=== PATIENT | male | born 1990 | race Caucasian/White ===

== ENCOUNTER 2018-12-27 02:15 | Emergency (ER) | payer OTHER ==
[~2018-12-27] VITALS: Ht 170.2 cm; Wt 77.3 kg
[2018-12-27] MEDS ORDERED: IBUPROFEN 800 MG TAB PO ONE (03:30)
[2018-12-27] MEDS ORDERED: IBUP80TA PO (04:15)
[2018-12-27 04:28] VITALS: BP 122/58
--- NOTE | 2018-12-27 09:05 | REP ---
Left ankle series: Four views. History: Injury. Findings: Four views of the left ankle are presented. 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 There is some apex anterior angulation at this site. No acute fracture is seen. Ankle mortise is intact. No ankle fracture is appreciated. 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 No acute fracture seen. Electronically Signed by John Lange MD 12/27/2018 08:56 A
--- NOTE | 2018-12-27 09:06 | REP ---
Left foot series: Four views. History: Injury. Findings: Four views of the left foot demonstrate the old nonunited distal fibular diaphyseal fracture as described in the ankle series from this date. Overall mineralization pattern is normal. No foot fracture is seen. No acute bony abnormality is noted. Joint spaces are preserved. Impression: Old nonunited distal fibular fracture again seen. No acute fracture noted. Electronically Signed by John Lange MD 12/27/2018 08:57 A
== END 2018-12-27 04:30 | disposition home or self-care (01) ==
LOC: M ED 02:15
DX: S93.402A Sprain of unspecified ligament of left ankle, initial encounter (principal); X50.1XXA Overexertion from prolonged static or awkward postures, initial encounter; Y92.099 Unspecified place in other non-institutional residence as the place of occurrence of the external cause; Y93.9 Activity, unspecified; Y99.9 Unspecified external cause status; Z87.81 Personal history of (healed) traumatic fracture; Z72.0 Tobacco use